=== PATIENT | female | born 1950 | race Caucasian/White ===

== ENCOUNTER 2022-10-01 12:49 | Outpatient (CLI) | payer MEDICARE ==
[2022-10-01 21:29] LABS: Hemoglobin A1c 5.8 % (4.0-6.0)
== END 2022-10-01 12:50 | disposition home or self-care (01) ==
LOC: LABBT 12:49
PROVIDERS: ATTEND Specialist
DX: Z01.818 Encounter for other preprocedural examination (principal)
CPT/HCPCS: 71046; 83036; 93005; 93010